=== PATIENT | male | born 1945 | race Caucasian/White ===

== ENCOUNTER 2018-01-18 02:07 | Observation (INO) ==
[2018-01-18] MEDS ORDERED: Isovue-370 500 ML INFUS..BTL IV ONE (02:31)
--- NOTE | 2018-01-18 02:36 | Emergency Department Note ---
Disposition Clinical Impression: Abdominal pain Qualifiers: Abdominal location: generalized Qualified Code(s): R10.84 - Generalized abdominal pain Disposition: Still a Patient Condition: Undetermined Referrals: Rena Chahal MD [Non-Partnered Physician] - Forms: ED Satisfaction Letter, Work/School Release Time of Disposition: 07:00 Abdominal Pain HPI - General Chief Complaint: ED Abdominal Pain Stated Complaint: Abd Pain Time Seen by Provider: 01/18/18 02:18 Source: patient Mode of arrival: ambulatory Limitations: no limitations Nursing Notes Reviewed: Yes Vital Signs Reviewed: Yes - History of Present Illness HPI Narrative: Patient is a 72-year-old male who presents to [facility] ED with chief complaint of abdominal pain. States his symptoms started around midnight tonight. Denies any nausea, vomiting, fever or chills. No problems with bowel movements. No chest pain or difficulty breathing. States it is an 8 out of 10 but was a 9 out of 10 earlier. States it feels like an extreme pressure. Admits to prior history of hernia surgery done by Dr. cShmitt. Past medical history significant for Parkinson's disease. Pt Subjective Complaint: abdominal pain Onset (ago): hour(s) (2) Consistency: constant Location: diffuse Pain Severity: severe Pain Scale: 8 Quality: aching, fullness Radiation: none Migration to: no migration Improves with: nothing Worsens with: nothing Associated symptoms: Denies: nausea, vomiting, diarrhea, fever, chills, constipation, dysuria Treatments prior to arrival: none - Related Data Home Medications Medication Instructions Recorded Confirmed Keppra 05/19/16 Lisinopril [Zestril] 05/19/16 Sertraline [Zoloft] 05/19/16 Simvastatin [Zocor] 05/19/16 Previous Rx's Medication Instructions Recorded cephALEXin [Keflex] 500 mg PO QID #40 capsule 05/19/16 Allergies Allergy/AdvReac Type Severity Reaction Status Date / Time No Known Allergies Allergy Verified 04/20/17 17:56 All systems ED: reviewed and negative except as stated. Abdominal Pain PMH - Past Medical History Medical history: Reports: arthritis, cancer, hyperlipidemia, hypertension, seizures, other Psychiatric history: Reports: no psych history - Social History Smoking status: Never smoker Alcohol use: Reports: none Drug use: Reports: none Physical Exam - General Limitations: no limitations General appearance: alert, in no apparent distress - Head Head exam: atraumatic, normocephalic, normal inspection - Eye Eye exam: Present: normal appearance, EOMI - ENT ENT exam: normal exam, mucous membranes moist - Neck Neck exam: Present: normal inspection, full ROM, trachea midline - Chest Chest inspection: Present: normal inspection, symmetric chest wall rise - Respiratory Respiratory exam: Present: normal lung sounds bilaterally - Cardiovascular Cardiovascular exam: Present: regular rate, normal rhythm, normal heart sounds - Abdominal Exam Abdominal exam: Present: soft, tenderness, normal bowel sounds. Absent: distention, guarding, rebound, rigidity Abdominal tenderness: Present: diffuse, moderate - Extremities Exam Extremities exam: Present: normal inspection, full ROM. Absent: tenderness, pedal edema - Neurological Exam Neurological exam: Present: alert, oriented X3 - Psychiatric Psychiatric exam: Present: normal affect, normal mood - Skin Skin exam: Present: warm, dry, intact, normal color Course Course Narrative: Patient seen and examined. Generalized abdominal pain. No other symptoms. Upon physical exam, patient is tender throughout his entire abdomen. No localization of pain. It is soft. We will get basic lab work, CT abdomen and pelvis. Patient denying any need for pain medication or nausea medication at this time. - Reevaluation(s) Reevaluation #1: Labwork unremarkable. CT scan shows signs of possible acute cholecystitis. We will get a gallbladder ultrasound to further evaluate this. Pt signed out to day team pending US results. Time: 07:00 Vital Signs Temperature 97.7 F 01/18/18 02:31 Pulse Rate 83 01/18/18 02:31 Respiratory Rate 16 01/18/18 02:31 Blood Pressure 156/79 01/18/18 02:31 O2 Sat by Pulse Oximetry 97 01/18/18 02:31 Temperature 97.7 F 01/18/18 02:31 Pulse Rate 83 01/18/18 02:31 Respiratory Rate 16 01/18/18 02:31 Blood Pressure 156/79 01/18/18 02:31 O2 Sat by Pulse Oximetry 97 01/18/18 02:31 Oxygen Delivery Oxygen Delivery Room Air Abdominal Pain - Medical Records Medical records reviewed: Yes I reviewed the patient's medical records. - Lab Data Lab results reviewed: Yes I reviewed the patient's lab results. Result diagrams: 01/18/18 02:31 01/18/18 02:31 Lab Results 01/18/18 01/18/18 01/18/18 Range/Units 02:31 02:31 02:33 WBC 6.5 (4.3-11.1) K/mcL RBC 4.47 (4.19-5.50) M/mcL Hgb 13.4 (12.9-16.9) g/dL Hct 40.1 (37.5-50.1) % MCV 89.7 (83.0-100.0) fL MCH 30.0 (28.0-33.3) pg MCHC 33.4 (31.6-35.5) g/dL RDW 13.2 (11.5-14.5) % Plt Count 121 L (140-400) K/mcL MPV 10.9 (9.4-12.4) fL Immature Gran % 0.2 (0-4) % Seg Neutrophils % 60.8 % Lymphocytes % 29.2 % Monocytes % 8.4 % Eosinophils % 1.1 % Basophils % 0.3 % Neutrophils # 4.0 (1.6-8.9) K/mcL Lymphocytes # 1.9 (0.6-4.6) K/mcL Monocytes # 0.6 (0.0-1.3) K/mcL Eosinophils # 0.1 (0.0-0.6) K/mcL Basophils # 0.0 (0.0-0.2) K/mcL Sodium 138 (136-145) mEq/L Potassium 4.1 (3.5-5.1) mEq/L Chloride 104 (98-107) mEq/L Carbon Dioxide 28 (23-29) mEq/L BUN 18 (8-23) mg/dL Creatinine 0.87 (0.70-1.30) mg/dL Est GFR ( Amer) > 60 (> 60) Est GFR (Non-Af Amer) > 60 (> 60) BUN/Creatinine Ratio 21 (6-26) Glucose 122 H (70-105) mg/dL Calculated Osmolality 289 (280-300) Lactic Acid 1.5 (0.5-2.2) mmol/L Calcium 9.1 (8.6-10.3) mg/dL Total Bilirubin 0.8 (0.3-1.0) mg/dL Direct Bilirubin 0.3 H (0.0-0.2) mg/dL Indirect Bilirubin 0.5 (0.0-1.2) mg/dL AST 49 H (13-39) Units/L ALT 21 (7-52) Units/L Alkaline Phosphatase 35 (34-104) Units/L Serum Total Protein 6.6 (6.4-8.9) g/dL Albumin 4.0 (3.5-5.7) g/dL Globulin 2.6 (2.4-3.5) g/dL Albumin/Globulin Ratio 1.5 (1.1-2.2) Lipase 22 (11-82) Units/L Urine Color (Yellow) Urine Clarity (Clear) Urine pH (5.0-8.0) pH Units Ur Specific [place] (1.010-1.025) Urine Protein (Neg-Trace) mg/dL Urine Glucose (UA) (Normal) mg/dL Urine Ketones (Negative) mg/dL Urine Blood (Negative) Urine Nitrite (Negative) Urine Bilirubin (Negative) Urine Urobilinogen (Normal) mg/dL Ur Leukocyte Esterase (Negative) Urine Microscopic RBC (0-3) per hpf Urine Microscopic WBC (0-3) per hpf Ur Squamous Epith Cells (None-Few) per lpf Urine Bacteria (None-Few) per hpf Hyaline Casts (None-Few) per lpf Ur Culture Indicated? (NO) 01/18/18 Range/Units 02:35 WBC (4.3-11.1) K/mcL RBC (4.19-5.50) M/mcL Hgb (12.9-16.9) g/dL Hct (37.5-50.1) % MCV (83.0-100.0) fL MCH (28.0-33.3) pg MCHC (31.6-35.5) g/dL RDW (11.5-14.5) % Plt Count (140-400) K/mcL MPV (9.4-12.4) fL Immature Gran % (0-4) % Seg Neutrophils % % Lymphocytes % % Monocytes % % Eosinophils % % Basophils % % Neutrophils # (1.6-8.9) K/mcL Lymphocytes # (0.6-4.6) K/mcL Monocytes # (0.0-1.3) K/mcL Eosinophils # (0.0-0.6) K/mcL Basophils # (0.0-0.2) K/mcL Sodium (136-145) mEq/L Potassium (3.5-5.1) mEq/L Chloride (98-107) mEq/L Carbon Dioxide (23-29) mEq/L BUN (8-23) mg/dL Creatinine (0.70-1.30) mg/dL Est GFR ( Amer) (> 60) Est GFR (Non-Af Amer) (> 60) BUN/Creatinine Ratio (6-26) Glucose (70-105) mg/dL Calculated Osmolality (280-300) Lactic Acid (0.5-2.2) mmol/L Calcium (8.6-10.3) mg/dL Total Bilirubin (0.3-1.0) mg/dL Direct Bilirubin (0.0-0.2) mg/dL Indirect Bilirubin (0.0-1.2) mg/dL AST (13-39) Units/L ALT (7-52) Units/L Alkaline Phosphatase (34-104) Units/L Serum Total Protein (6.4-8.9) g/dL Albumin (3.5-5.7) g/dL Globulin (2.4-3.5) g/dL Albumin/Globulin Ratio (1.1-2.2) Lipase (11-82) Units/L Urine Color Yellow (Yellow) Urine Clarity Clear (Clear) Urine pH 6.0 (5.0-8.0) pH Units Ur Specific [place] > 1.030 H (1.010-1.025) Urine Protein Trace (Neg-Trace) mg/dL Urine Glucose (UA) Normal (Normal) mg/dL Urine Ketones Negative (Negative) mg/dL Urine Blood Negative (Negative) Urine Nitrite Negative (Negative) Urine Bilirubin Negative (Negative) Urine Urobilinogen Normal (Normal) mg/dL Ur Leukocyte Esterase Negative (Negative) Urine Microscopic RBC 5-15 H (0-3) per hpf Urine Microscopic WBC 0-3 (0-3) per hpf Ur Squamous Epith Cells Few (None-Few) per lpf Urine Bacteria None Seen (None-Few) per hpf Hyaline Casts None Seen (None-Few) per lpf Ur Culture Indicated? NO (NO) - Radiology Data Radiology results reviewed: Yes I reviewed the patient's radiology results. Abdomen/Pelvis CT 01/18/18 02:31 IMPRESSION: Acute cholecystitis is suspected. D/ / Tad Vasquez MD / aTd Vasquez MD Interpreting Provider: Tad Vasquez MD
[2018-01-18 02:43] LABS: Bilirubin,Urine Negative (Negative); Blood,Urine Negative (Negative); Clarity,Urine Clear (Clear); Color,Urine Yellow (Yellow); Glucose,Urine (UA) Normal (Normal); Ketones,Urine Negative (Negative); Leukocyte Esterase,Urine Negative (Negative); Nitrite,Urine Negative (Negative); Protein,Urine Trace mg/dL (Neg-Trace); Specific Gravity,Urine > 1.030 (1.010-1.025); Urobilinogen,Urine Normal (Normal)
[2018-01-18 02:46] LABS: Bacteria,Urine None Seen per hpf (None-Few); Hyaline Casts,Urine None Seen per lpf (None-Few); Squamous Epithelial Cell,Urine Few per lpf (None-Few); WBC,Urine 0-3 per hpf (0-3)
[2018-01-18 03:03] LABS: Alanine Aminotransferase 21 Units/L (7-52); Albumin/Globulin Ratio 1.5 (1.1-2.2); Alkaline Phosphatase 35 Units/L (34-104); Aspartate Amino Transferase 49 Units/L (13-39); BUN/Creatinine Ratio 21 (6-26); Bilirubin,Direct 0.3 mg/dL (0.0-0.2); Bilirubin,Indirect 0.5 mg/dL (0.0-1.2); Bilirubin,Total 0.8 mg/dL (0.3-1.0); Blood Urea Nitrogen 18 mg/dL (8-23); Calcium 9.1 mg/dL (8.6-10.3); Carbon Dioxide 28 mEq/L (23-29); Chloride 104 mEq/L (98-107); Globulin 2.6 g/dL (2.4-3.5); Glucose 122 mg/dL (70-105); Lipase 22 Units/L (11-82); Osmolality,Calculated 289 (280-300); Potassium 4.1 mEq/L (3.5-5.1); Sodium 138 mEq/L (136-145); Total Protein 6.6 g/dL (6.4-8.9); eGFR For African Americans > 60 (> 60); eGFR For Non-African Americans > 60 (> 60)
[2018-01-18 03:17] LABS: Basophils % 0.3 %; Eosinophils # 0.1 K/mcL (0.0-0.6); Eosinophils % 1.1 %; Hematocrit 40.1 % (37.5-50.1); Hemoglobin 13.4 g/dL (12.9-16.9); Immature Granulocytes % 0.2 % (0-4); Lymphocytes # 1.9 K/mcL (0.6-4.6); Lymphocytes % 29.2 %; Mean Corpuscular HGB Conc 33.4 g/dL (31.6-35.5); Mean Corpuscular Volume 89.7 fL (83.0-100.0); Mean Platelet Volume 10.9 fL (9.4-12.4); Monocytes # 0.6 K/mcL (0.0-1.3); Monocytes % 8.4 %; Platelet Count 121 K/mcL (140-400); Red Blood Count 4.47 M/mcL (4.19-5.50); Red Cell Distribution Width 13.2 % (11.5-14.5); Segmented Neutrophils % 60.8 %
--- NOTE | 2018-01-18 07:14 | Emergency Department Note ---
Disposition Clinical Impression: Abdominal pain Qualifiers: Abdominal location: generalized Qualified Code(s): R10.84 - Generalized abdominal pain Disposition: Still a Patient Condition: Undetermined Referrals: Rena Chahal MD [Non-Partnered Physician] - Forms: ED Satisfaction Letter, Work/School Release General Adult HPI - General Chief complaint: ED Abdominal Pain Stated complaint: Abd Pain Time Seen by Provider: 01/18/18 02:18 Source: patient Mode of arrival: ambulatory Limitations: no limitations Nursing Notes Reviewed: Yes Vital Signs Reviewed: Yes - History of Present Illness Pain Scale: 8 - Related Data Home Medications Medication Instructions Recorded Confirmed Keppra 05/19/16 Lisinopril [Zestril] 05/19/16 Sertraline [Zoloft] 05/19/16 Simvastatin [Zocor] 05/19/16 Previous Rx's Medication Instructions Recorded cephALEXin [Keflex] 500 mg PO QID #40 capsule 05/19/16 Allergies Allergy/AdvReac Type Severity Reaction Status Date / Time No Known Allergies Allergy Verified 04/20/17 17:56 Past Medical History - Past Medical History Medical history: Reports: arthritis, cancer, hyperlipidemia, hypertension, seizures, other Surgical history: Reports: other Psychiatric history: Reports: no psych history - Social History Smoking Status: Never smoker Smokeless Tobacco Status: No Alcohol use: Reports: none Drug use: Reports: none Physical Exam - General Limitations: no limitations General appearance: alert, in no apparent distress Course Vital Signs Temperature 97.7 F 01/18/18 02:31 Pulse Rate 83 01/18/18 02:31 Respiratory Rate 16 01/18/18 02:31 Blood Pressure 156/79 01/18/18 02:31 O2 Sat by Pulse Oximetry 97 01/18/18 02:31 Temperature 97.7 F 01/18/18 02:31 Pulse Rate 83 01/18/18 02:31 Respiratory Rate 16 01/18/18 02:31 Blood Pressure 156/79 01/18/18 02:31 O2 Sat by Pulse Oximetry 97 01/18/18 02:31 Oxygen Delivery Oxygen Delivery Room Air Medical Decision Making - Lab Data Result diagrams: 01/18/18 02:31 01/18/18 02:31 Lab Results 01/18/18 01/18/18 01/18/18 Range/Units 02:31 02:31 02:33 WBC 6.5 (4.3-11.1) K/mcL RBC 4.47 (4.19-5.50) M/mcL Hgb 13.4 (12.9-16.9) g/dL Hct 40.1 (37.5-50.1) % MCV 89.7 (83.0-100.0) fL MCH 30.0 (28.0-33.3) pg MCHC 33.4 (31.6-35.5) g/dL RDW 13.2 (11.5-14.5) % Plt Count 121 L (140-400) K/mcL MPV 10.9 (9.4-12.4) fL Immature Gran % 0.2 (0-4) % Seg Neutrophils % 60.8 % Lymphocytes % 29.2 % Monocytes % 8.4 % Eosinophils % 1.1 % Basophils % 0.3 % Neutrophils # 4.0 (1.6-8.9) K/mcL Lymphocytes # 1.9 (0.6-4.6) K/mcL Monocytes # 0.6 (0.0-1.3) K/mcL Eosinophils # 0.1 (0.0-0.6) K/mcL Basophils # 0.0 (0.0-0.2) K/mcL Sodium 138 (136-145) mEq/L Potassium 4.1 (3.5-5.1) mEq/L Chloride 104 (98-107) mEq/L Carbon Dioxide 28 (23-29) mEq/L BUN 18 (8-23) mg/dL Creatinine 0.87 (0.70-1.30) mg/dL Est GFR ( Amer) > 60 (> 60) Est GFR (Non-Af Amer) > 60 (> 60) BUN/Creatinine Ratio 21 (6-26) Glucose 122 H (70-105) mg/dL Calculated Osmolality 289 (280-300) Lactic Acid 1.5 (0.5-2.2) mmol/L Calcium 9.1 (8.6-10.3) mg/dL Total Bilirubin 0.8 (0.3-1.0) mg/dL Direct Bilirubin 0.3 H (0.0-0.2) mg/dL Indirect Bilirubin 0.5 (0.0-1.2) mg/dL AST 49 H (13-39) Units/L ALT 21 (7-52) Units/L Alkaline Phosphatase 35 (34-104) Units/L Serum Total Protein 6.6 (6.4-8.9) g/dL Albumin 4.0 (3.5-5.7) g/dL Globulin 2.6 (2.4-3.5) g/dL Albumin/Globulin Ratio 1.5 (1.1-2.2) Lipase 22 (11-82) Units/L Urine Color (Yellow) Urine Clarity (Clear) Urine pH (5.0-8.0) pH Units Ur Specific [place] (1.010-1.025) Urine Protein (Neg-Trace) mg/dL Urine Glucose (UA) (Normal) mg/dL Urine Ketones (Negative) mg/dL Urine Blood (Negative) Urine Nitrite (Negative) Urine Bilirubin (Negative) Urine Urobilinogen (Normal) mg/dL Ur Leukocyte Esterase (Negative) Urine Microscopic RBC (0-3) per hpf Urine Microscopic WBC (0-3) per hpf Ur Squamous Epith Cells (None-Few) per lpf Urine Bacteria (None-Few) per hpf Hyaline Casts (None-Few) per lpf Ur Culture Indicated? (NO) 01/18/18 Range/Units 02:35 WBC (4.3-11.1) K/mcL RBC (4.19-5.50) M/mcL Hgb (12.9-16.9) g/dL Hct (37.5-50.1) % MCV (83.0-100.0) fL MCH (28.0-33.3) pg MCHC (31.6-35.5) g/dL RDW (11.5-14.5) % Plt Count (140-400) K/mcL MPV (9.4-12.4) fL Immature Gran % (0-4) % Seg Neutrophils % % Lymphocytes % % Monocytes % % Eosinophils % % Basophils % % Neutrophils # (1.6-8.9) K/mcL Lymphocytes # (0.6-4.6) K/mcL Monocytes # (0.0-1.3) K/mcL Eosinophils # (0.0-0.6) K/mcL Basophils # (0.0-0.2) K/mcL Sodium (136-145) mEq/L Potassium (3.5-5.1) mEq/L Chloride (98-107) mEq/L Carbon Dioxide (23-29) mEq/L BUN (8-23) mg/dL Creatinine (0.70-1.30) mg/dL Est GFR ( Amer) (> 60) Est GFR (Non-Af Amer) (> 60) BUN/Creatinine Ratio (6-26) Glucose (70-105) mg/dL Calculated Osmolality (280-300) Lactic Acid (0.5-2.2) mmol/L Calcium (8.6-10.3) mg/dL Total Bilirubin (0.3-1.0) mg/dL Direct Bilirubin (0.0-0.2) mg/dL Indirect Bilirubin (0.0-1.2) mg/dL AST (13-39) Units/L ALT (7-52) Units/L Alkaline Phosphatase (34-104) Units/L Serum Total Protein (6.4-8.9) g/dL Albumin (3.5-5.7) g/dL Globulin (2.4-3.5) g/dL Albumin/Globulin Ratio (1.1-2.2) Lipase (11-82) Units/L Urine Color Yellow (Yellow) Urine Clarity Clear (Clear) Urine pH 6.0 (5.0-8.0) pH Units Ur Specific [place] > 1.030 H (1.010-1.025) Urine Protein Trace (Neg-Trace) mg/dL Urine Glucose (UA) Normal (Normal) mg/dL Urine Ketones Negative (Negative) mg/dL Urine Blood Negative (Negative) Urine Nitrite Negative (Negative) Urine Bilirubin Negative (Negative) Urine Urobilinogen Normal (Normal) mg/dL Ur Leukocyte Esterase Negative (Negative) Urine Microscopic RBC 5-15 H (0-3) per hpf Urine Microscopic WBC 0-3 (0-3) per hpf Ur Squamous Epith Cells Few (None-Few) per lpf Urine Bacteria None Seen (None-Few) per hpf Hyaline Casts None Seen (None-Few) per lpf Ur Culture Indicated? NO (NO) Attestation Statement - Attestation Attestation: I, Everardo Jacobo MD, personally evaluated this patient and discussed their management with the resident physician. I reviewed the resident's note and agree with the documented findings, medical decision making, and plan of care. 72-year-old male presents to the emergency department with a complaint of generalized abdominal pain which started about midnight tonight. He states the pain was initially in the upper abdomen and then moved down into the mid abdomen. He did have some nausea but no vomiting. No diarrhea. No melena, hematemesis, or hematochezia. No fever. No urinary symptoms. Patient's only prior abdominal surgery is inguinal hernia repair. On examination patient is a well-developed well-nourished well-appearing elderly male in no acute distress. He is alert and oriented 3. There is no cyanosis or diaphoresis. Breath sounds are clear and equal bilaterally. Heart regular rate and rhythm. Abdomen is soft with normal bowel sounds. There is mild diffuse tenderness with moderate right upper quadrant tenderness on direct palpation. Mild right upper quadrant guarding. No rebound tenderness. No CVA tenderness. Labs reviewed and unremarkable. CT scan of the abdomen and pelvis obtained and was suspicious for acute cholecystitis with some pericholecystic fluid noted. A gallbladder ultrasound was ordered. At shift change the patient is signed out to the oncoming dayshift team, Dr. Mejia and Dr. Webb.
--- NOTE | 2018-01-18 08:13 | Emergency Department Note ---
Disposition Clinical Impression: Abdominal pain Qualifiers: Abdominal location: generalized Qualified Code(s): R10.84 - Generalized abdominal pain Disposition: Still a Patient Condition: Undetermined Referrals: Rena Chahal MD [Non-Partnered Physician] - Forms: ED Satisfaction Letter, Work/School Release Time of Disposition: 10:07 General Adult HPI - General Chief complaint: ED Abdominal Pain Stated complaint: Abd Pain Time Seen by Provider: 01/18/18 02:18 Source: patient Mode of arrival: ambulatory Limitations: no limitations Nursing Notes Reviewed: Yes Vital Signs Reviewed: Yes - History of Present Illness Pain Scale: 7 - Related Data Home Medications Medication Instructions Recorded Confirmed Keppra 05/19/16 Lisinopril [Zestril] 05/19/16 Sertraline [Zoloft] 05/19/16 Simvastatin [Zocor] 05/19/16 Carbidopa/Levodopa [Carbidopa-Levo 1 each PO TID 01/18/18 01/18/18 25-100 mg Odt] LevETIRAcetam [Roweepra] 500 mg PO BID 01/18/18 01/18/18 rOPINIRole [Requip] 1 mg PO TID 01/18/18 01/18/18 Allergies Allergy/AdvReac Type Severity Reaction Status Date / Time No Known Allergies Allergy Verified 04/20/17 17:56 Past Medical History - Past Medical History Medical history: Reports: arthritis, cancer, hyperlipidemia, hypertension, seizures, other Surgical history: Reports: other Psychiatric history: Reports: no psych history - Social History Smoking Status: Never smoker Smokeless Tobacco Status: No Alcohol use: Reports: none Drug use: Reports: none Physical Exam - General Limitations: no limitations General appearance: alert, in no apparent distress Course Course Narrative: Patient was initially seen by the night team Dr. Mitchell and Dr. Jacobo please see their note for further. His abdominal ultrasound it come back with a concern for acute cholecystitis. I reexamined him and he is still having right upper quadrant abdominal pain. He states it is decreased since he was first evaluated here. He is well- appearing and conversant. He frequently laughs and tells jokes. I discussed the case with Dr. tolentino who is agreeable to admission to the hospital for possible cholecystectomy this evening. She is agreeable for this plan. He states that the last time he ate was [facility] on 10:30. He did take sips of water to take his medication. - Consultations Consultation #1: Dr Tolentino will be in to see the Pt. He is admitting to his service. Time: 08:11 Vital Signs Temperature 97.7 F 01/18/18 02:31 Pulse Rate 83 01/18/18 02:31 Respiratory Rate 16 01/18/18 02:31 Blood Pressure 156/79 01/18/18 02:31 O2 Sat by Pulse Oximetry 97 01/18/18 02:31 Temperature 97.7 F 01/18/18 02:31 Pulse Rate 65 01/18/18 07:20 Respiratory Rate 18 01/18/18 07:20 Blood Pressure 128/75 01/18/18 07:20 O2 Sat by Pulse Oximetry 99 01/18/18 07:20 Oxygen Delivery Oxygen Delivery Room Air Medical Decision Making - Lab Data Result diagrams: 01/18/18 02:31 01/18/18 02:31 Lab Results 01/18/18 01/18/18 01/18/18 Range/Units 02:31 02:31 02:33 WBC 6.5 (4.3-11.1) K/mcL RBC 4.47 (4.19-5.50) M/mcL Hgb 13.4 (12.9-16.9) g/dL Hct 40.1 (37.5-50.1) % MCV 89.7 (83.0-100.0) fL MCH 30.0 (28.0-33.3) pg MCHC 33.4 (31.6-35.5) g/dL RDW 13.2 (11.5-14.5) % Plt Count 121 L (140-400) K/mcL MPV 10.9 (9.4-12.4) fL Immature Gran % 0.2 (0-4) % Seg Neutrophils % 60.8 % Lymphocytes % 29.2 % Monocytes % 8.4 % Eosinophils % 1.1 % Basophils % 0.3 % Neutrophils # 4.0 (1.6-8.9) K/mcL Lymphocytes # 1.9 (0.6-4.6) K/mcL Monocytes # 0.6 (0.0-1.3) K/mcL Eosinophils # 0.1 (0.0-0.6) K/mcL Basophils # 0.0 (0.0-0.2) K/mcL Sodium 138 (136-145) mEq/L Potassium 4.1 (3.5-5.1) mEq/L Chloride 104 (98-107) mEq/L Carbon Dioxide 28 (23-29) mEq/L BUN 18 (8-23) mg/dL Creatinine 0.87 (0.70-1.30) mg/dL Est GFR ( Amer) > 60 (> 60) Est GFR (Non-Af Amer) > 60 (> 60) BUN/Creatinine Ratio 21 (6-26) Glucose 122 H (70-105) mg/dL Calculated Osmolality 289 (280-300) Lactic Acid 1.5 (0.5-2.2) mmol/L Calcium 9.1 (8.6-10.3) mg/dL Total Bilirubin 0.8 (0.3-1.0) mg/dL Direct Bilirubin 0.3 H (0.0-0.2) mg/dL Indirect Bilirubin 0.5 (0.0-1.2) mg/dL AST 49 H (13-39) Units/L ALT 21 (7-52) Units/L Alkaline Phosphatase 35 (34-104) Units/L Serum Total Protein 6.6 (6.4-8.9) g/dL Albumin 4.0 (3.5-5.7) g/dL Globulin 2.6 (2.4-3.5) g/dL Albumin/Globulin Ratio 1.5 (1.1-2.2) Lipase 22 (11-82) Units/L Urine Color (Yellow) Urine Clarity (Clear) Urine pH (5.0-8.0) pH Units Ur Specific [place] (1.010-1.025) Urine Protein (Neg-Trace) mg/dL Urine Glucose (UA) (Normal) mg/dL Urine Ketones (Negative) mg/dL Urine Blood (Negative) Urine Nitrite (Negative) Urine Bilirubin (Negative) Urine Urobilinogen (Normal) mg/dL Ur Leukocyte Esterase (Negative) Urine Microscopic RBC (0-3) per hpf Urine Microscopic WBC (0-3) per hpf Ur Squamous Epith Cells (None-Few) per lpf Urine Bacteria (None-Few) per hpf Hyaline Casts (None-Few) per lpf Ur Culture Indicated? (NO) 06/23/18 Range/Units 02:35 WBC (4.3-11.1) K/mcL RBC (4.19-5.50) M/mcL Hgb (12.9-16.9) g/dL Hct (37.5-50.1) % MCV (83.0-100.0) fL MCH (28.0-33.3) pg MCHC (31.6-35.5) g/dL RDW (11.5-14.5) % Plt Count (140-400) K/mcL MPV (9.4-12.4) fL Immature Gran % (0-4) % Seg Neutrophils % % Lymphocytes % % Monocytes % % Eosinophils % % Basophils % % Neutrophils # (1.6-8.9) K/mcL Lymphocytes # (0.6-4.6) K/mcL Monocytes # (0.0-1.3) K/mcL Eosinophils # (0.0-0.6) K/mcL Basophils # (0.0-0.2) K/mcL Sodium (136-145) mEq/L Potassium (3.5-5.1) mEq/L Chloride (98-107) mEq/L Carbon Dioxide (23-29) mEq/L BUN (8-23) mg/dL Creatinine (0.70-1.30) mg/dL Est GFR ( Amer) (> 60) Est GFR (Non-Af Amer) (> 60) BUN/Creatinine Ratio (6-26) Glucose (70-105) mg/dL Calculated Osmolality (280-300) Lactic Acid (0.5-2.2) mmol/L Calcium (8.6-10.3) mg/dL Total Bilirubin (0.3-1.0) mg/dL Direct Bilirubin (0.0-0.2) mg/dL Indirect Bilirubin (0.0-1.2) mg/dL AST (13-39) Units/L ALT (7-52) Units/L Alkaline Phosphatase (34-104) Units/L Serum Total Protein (6.4-8.9) g/dL Albumin (3.5-5.7) g/dL Globulin (2.4-3.5) g/dL Albumin/Globulin Ratio (1.1-2.2) Lipase (11-82) Units/L Urine Color Yellow (Yellow) Urine Clarity Clear (Clear) Urine pH 6.0 (5.0-8.0) pH Units Ur Specific [place] > 1.030 H (1.010-1.025) Urine Protein Trace (Neg-Trace) mg/dL Urine Glucose (UA) Normal (Normal) mg/dL Urine Ketones Negative (Negative) mg/dL Urine Blood Negative (Negative) Urine Nitrite Negative (Negative) Urine Bilirubin Negative (Negative) Urine Urobilinogen Normal (Normal) mg/dL Ur Leukocyte Esterase Negative (Negative) Urine Microscopic RBC 5-15 H (0-3) per hpf Urine Microscopic WBC 0-3 (0-3) per hpf Ur Squamous Epith Cells Few (None-Few) per lpf Urine Bacteria None Seen (None-Few) per hpf Hyaline Casts None Seen (None-Few) per lpf Ur Culture Indicated? NO (NO)
[2018-01-18] MEDS ORDERED: *HR* OxyCODONE Immed Rel 5 MG TABLET PO PRN ×2 (09:13→19:13)
[2018-01-18] MEDS ORDERED: Acetaminophen 325 MG TABLET PO PRN (09:13)
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
[2018-01-18] MEDS ORDERED: Divalproex (12 HR) 500 MG TABLET PO SCH (09:30)
[2018-01-18] MEDS ORDERED: levETIRAcetam 250 MG TABLET PO SCH (09:30)
[2018-01-18] MEDS: Ringers Solution, Lactated 1,000 ML IVC SCH ×2 (10:42→18:00)
[2018-01-18] MEDS: rOPINIRole 1 MG TABLET PO SCH ×3 (10:42→21:42)
[2018-01-18] MEDS: Carbidopa/Levodopa 25/100 TABLET PO SCH ×3 (10:43→21:41)
[2018-01-18] MEDS ORDERED: Ondansetron 4 MG/2 ML VIAL IVP PRN ×2 (12:00→19:13)
[2018-01-18] MEDS ORDERED: *HR* Propofol 200 MG/20 ML VIAL IVP ONE (16:29)
[2018-01-18] MEDS ORDERED: Ondansetron 4 MG/2 ML VIAL ONE (16:29)
[2018-01-18] MEDS ORDERED: Lidocaine -MPF 2% 2 ML VIAL ONE (16:29)
[2018-01-18] MEDS ORDERED: Dexamethasone 4 MG/ML VIAL ONE (16:29)
[2018-01-18] MEDS ORDERED: *HR* FentaNYL (PF) 100 MCG/2 ML VIAL ONE ×2 (16:29→17:28)
--- NOTE | 2018-01-18 16:37 | Anesthesia Evaluation PreOp ---
Date of Encounter: 01/18/18 Time of Encounter: 16:35 - Past History Planned Operation: Cholecystectomy Cardiac History: HTN, Hyperlipidemia Pulmonary History: Denies Any Significant HX [employer] History: Other (Parkinson's) Other Medical History: Other (BPH) Anesthesia History: No Prior Anesthetic Complications Alcohol Use: none Drug use: none Medications and Allergies Divalproex (12 HR) [Depakote (12 HR)] 500 mg PO BID 05/19/16 [History] Sertraline [Zoloft] 150 mg PO DAILY 05/19/16 [History] Simvastatin [Zocor] 40 mg PO HS 05/19/16 [History] Carbidopa/Levodopa [Carbidopa-Levo 25-100 mg Odt] 1 each PO TID 01/18/18 [ History] LevETIRAcetam [Roweepra] 500 mg PO BID 01/18/18 [History] Lisinopril [Zestril] 10 mg PO DAILY 01/18/18 [History] rOPINIRole [Requip] 1 mg PO TID 01/18/18 [History] 3 Allergy/AdvReac Type Severity Reaction Status Date / Time No Known Allergies Allergy Verified 01/18/18 11:03 - Meds/Allergy Pre-op Review Medications Reviewed: Yes Allergies Reviewed: Yes Beta Blockers on Current Med List: No Anesthesia Results - Labs 01/18/18 02:31 01/18/18 02:31 Laboratory Tests 03/25/14 05/05/14 01/18/18 05:10 13:50 02:31 Hgb 13.4 Hct 40.1 Plt Count 121 L PT 10.5 INR 1.0 PTT 26.5 Sodium Potassium BUN Creatinine 01/18/18 02:31 Hgb Hct Plt Count PT INR PTT Sodium 138 Potassium 4.1 BUN 18 Creatinine 0.87 Anesthesia Exam Vital Signs/O2 Sat/Glucose, Most Current Temp Pulse Resp BP Pulse Ox 01/18/18 15:03 97.8 F 85 16 122/70 99 Height: 5'8 Weight: 225 lbs NPO (# of Hours): MN Pain Scale: 0 - HEENT Pupil (Motor): Pupils equal, EOMI Mallampati: III Teeth: Edentulous (no upper dentition) Oral Opening: Less than or equal to 3 - [employer] LOC: Oriented [employer] Motor: Normal RUE, Normal LUE, Normal RLE, Normal LLE, Normal Face [employer] Sensory: Normal: RUE, LUE, RLE, LLE, Face - Cardiac Rhythm: Regular Murmur: None JVD: No Carotid Bruit: No - Pulmonary Breath Sounds: bilateral Clear Respiratory Effort: Symmetrical Anesthesia Assess/Plan ASA Score: 3 (HTN Parkinson's) Modified [place] Scale for Level of Consciousness: Cooperative, oriented, and tranquil Anesthetic Plan: General Monitoring Plan: Standard Monitors Recovery Plan: PACU (Discussed GA, agrees to proceed, possible TAP Block post op for rescue)
[2018-01-18] MEDS ORDERED: Acetaminophen IV 1,000 MG/100 ML INFUS..BTL ONE (16:40)
[2018-01-18] MEDS ORDERED: Famotidine 20 MG/2 ML VIAL ONE (16:40)
[2018-01-18] MEDS ORDERED: Isovue-300 50 ML VIAL IVP ONE (16:56)
[2018-01-18] MEDS ORDERED: Bupivacaine/EPI 1:200k 0.25%PF 30 ML VIAL ONE (16:56)
[2018-01-18] MEDS ORDERED: Ketorolac 30 MG/ML VIAL ONE (18:04)
[2018-01-18] MEDS ORDERED: Neostigmine Methylsulfate 3 MG/3 ML SYRINGE ONE (18:05)
--- NOTE | 2018-01-18 18:46 | Operative Note ---
Date of procedure: 01/18/18 Pre-op diagnosis: acute cholecystitis, cholelithiasis Post-op diagnosis: same Procedure: Laparoscopic cholecystectomy, intraoperative quadrant Complications: None apparent Anesthesia: GETA Local Anesthetics: 0.25% Sensorcaine HCL with Epinephrine 1:200,000 SubQ (cc) ( 20 mL) Surgeon: Silviano Tolentino Was there an hotel administrative assistant present: No Manager Collection: Galen Tsang Estimated blood loss (cc): 5 IV fluids (cc): 1,000 Specimen: gallbladder Condition: stable Disposition: PACU Procedure in Detail: The patient was brought to the operating room where he was placed supine on the procedure table. The patient was appropriately identified as to person and procedure. The accuracy of this information was confirmed by the patient and procedure team. The patient was then intubated and anesthetized under the supervision of Dr. Chacho Schaeffer. The abdomen was prepped and draped in the usual sterile fashion. Because of previous transabdominal surgery (probable peritoneal lavage), the initial laparoscopic approach was in the right upper quadrant, midclavicular line, caudal to the costal margin. Several milliliters of 0.25% bupivacaine with 1-200,000 units epinephrine was infiltrated into this site. A small transverse incision was made. A 5 mm Xcel was established. The rigid laparoscope was placed within the obturator to visualize passage through the layers of the anterior abdominal wall. When the abdominal cavity was accessed, the obturator was replaced by the rigid laparoscope, the abdomen was insufflated with gaseous carbon dioxide. There was no obvious visible injury from establishing the port. There were no significant adhesions in the area of the umbilicus. Under direct visualization an 11 mm port was established. The rigid laparoscope was shifted to this location to visualize placement of the remaining ports. The gallbladder was grasped and retracted. The hepatoduodenal ligament was dissected, the cystic duct skeletonized and clipped near the infundibulum of the gallbladder. The cystic artery was also identified , skeletonized, clipped twice proximally, and clipped once distally. Via a separate percutaneous insertion site, a Taut cholangiogram catheter was introduced. The cystic duct was incised, the cholangiogram catheter introduced. Using C-arm fluoroscopy, cholangiogram was then completed showing a normal-appearing hepatobiliary tree. There were no filling defects. There was free flow of contrast into the duodenum. The cholangiocatheter was removed , the cystic duct was doubly clipped and divided. The cystic artery was now divided as well. The gallbladder was dissected from the liver bed using Ethicon harmonic deondre. Once from the liver bed, the gallbladder was placed in an endoscopic pouch and extracted through the infraumbilical opening. The gallbladder was retrieved and sent to pathology for analysis. Multiple stones of varying size were readily identified within the gallbladder. The liver bed was inspected for adequate hemostasis. Once this was assured, the pneumoperitoneum was evacuated, the laparoscopic instrumentation removed. The fascia of the infraumbilical opening was closed with interrupted figure-of- eight's 0 Vicryl using S retractors. The skin edges of the port sites were approximated with subcuticular 4-0 Vicryl. The incisions were sealed with Dermabond dermal adhesive. The patient was taken to recovery in stable condition. Needle, sponge, and instrument counts were correct at the close of the case. Total volume of 0.25% bupivacaine with 1-200,000 units epinephrine used, 20 mL.
--- NOTE | 2018-01-18 18:57 | Anesthesia Evaluation Post Op ---
Date of Encounter: 01/18/18 Time of Encounter: 19:00 - Vital Signs Vital Signs: Vital Signs/O2 Sat/Glucose, Most Current Temp Pulse Resp BP Pulse Ox 01/18/18 18:45 60 14 116/60 99 01/18/18 18:35 97.2 F L 57 12 117/68 99 01/18/18 15:03 97.8 F 85 16 122/70 99 - Lungs Lungs: Clear Ascult./Percussion - Airway Airway: Non-obstructed - Cardiovascular Regular Rate - Mental Status Mental Status: Alert & Oriented, Answers Appropriately - Pain Pain Scale: 1 - Nausea Vomiting Nausea Vomiting: Not Present - Hydration Hydration: Ice chips - Discharge PostOp Status: Transfer Patient to floor
[2018-01-18] MEDS ORDERED: Ringers Solution, Lactated 1,000 ML IVC SCH (19:13)
[2018-01-18] MEDS ORDERED: *HR* OxyCODONE/APAP 5/325 TABLET PO PRN (19:13)
[2018-01-18] MEDS ORDERED: Ringers Solution, Lactated 500 ML IVC ONE (19:18)
[2018-01-18] MEDS: Acetaminophen 325 MG TABLET PO PRN (21:40)
[2018-01-18] MEDS: levETIRAcetam 250 MG TABLET PO SCH (21:42)
[2018-01-18] MEDS: Divalproex (12 HR) 500 MG TABLET PO SCH (21:43)
[2018-01-19 01:23] LABS: Basophils % 0.1 %; Hematocrit 39.5 % (37.5-50.1); Hemoglobin 13.3 g/dL (12.9-16.9); Immature Granulocytes % 0.4 % (0-4); Lymphocytes # 1.1 K/mcL (0.6-4.6); Mean Corpuscular HGB Conc 33.7 g/dL (31.6-35.5); Mean Corpuscular Volume 89.2 fL (83.0-100.0); Mean Platelet Volume 11.2 fL (9.4-12.4); Monocytes # 0.3 K/mcL (0.0-1.3); Monocytes % 4.3 %; Neutrophils # 5.5 K/mcL (1.6-8.9); Platelet Count 111 K/mcL (140-400); Red Blood Count 4.43 M/mcL (4.19-5.50); Red Cell Distribution Width 13.2 % (11.5-14.5); Segmented Neutrophils % 79.2 %
[2018-01-19 07:10] VITALS: BP 142/77
[2018-01-19] MEDS: rOPINIRole 1 MG TABLET PO SCH (09:10)
[2018-01-19] MEDS: Divalproex (12 HR) 500 MG TABLET PO SCH (09:10)
[2018-01-19] MEDS: Carbidopa/Levodopa 25/100 TABLET PO SCH (09:11)
[2018-01-19] MEDS: levETIRAcetam 250 MG TABLET PO SCH (09:11)
[2018-01-19] MEDS: Acetaminophen 325 MG TABLET PO PRN (09:18)
--- NOTE | 2018-01-19 10:48 | General Surgery Progress Note ---
Date of Encounter: 01/19/18 Time of Encounter: 10:45 - Assessment and Plan (1) Cholelithiasis Current Visit: Yes Status: Acute Qualifiers: Cholelithiasis location: gallbladder Cholecystitis presence: with cholecystitis Cholecystitis acuity: acute Biliary obstruction: without biliary obstruction Qualified Code(s): K80.00 - Calculus of gallbladder with acute cholecystitis without obstruction Subjective Narrative: General Surgery - POD#1 Patient feeling well, minimal complaints. Afebrile, hemodynamically stable. 97.4, 64, 18, blood pressure 142/77. Lungs: Clear to auscultation, no abdominal pain with deep inspiration Abdomen: Soft, minimal infraumbilical tenderness related to that port site. Port sites clean and dry. Patient tolerating regular diet, active bowel sounds Laboratories: White count 6.9, hemoglobin 13.3, hematocrit 39.5 Impression: Acute cholecystitis, cholelithiasis with biliary colic - Postoperative day 1, status post laparoscopic cholecystectomy, intraoperative cholangiogram Acceptable postoperative status Plan: Discharge home Outpatient follow-up in the office, 01/24/18. Objective Vital Signs - Last 8 Hours Temp Pulse Resp BP Pulse Ox 01/19/18 07:07 97.4 F L 64 18 142/77 98 01/19/18 05:31 97.6 F 72 15 119/69 93 Intake and Output 01/18/18 01/19/18 01/19/18 23:59 07:59 15:59 Intake Total 1000 / 1000 200 / 200 360 / 360 Output Total 555 / 555 0 / 0 Balance 445 / 445 200 / 200 360 / 360 Intake: IV Fluids 1000 / 1000 Lactated Ringers 1,000 ML @ 100 1000 / 1000 mls/hr IVC .Q10H TOMER Rx#: [id number] Oral 0 / 0 200 / 200 360 / 360 Output: Urine 550 / 550 0 / 0 Estimated Blood Loss 5 / 5 Other: Meal NPO Breakfast Percent of Meal Consumed 0% 100% # Bowel Movements 0 0 Weight 101.6 kg - Labs 01/19/18 01:02 01/18/18 02:31 Consult Discharge Plan - Plan Referrals: Umang Naik MD [Primary Care Provider] -
--- NOTE | 2018-01-19 10:53 | Discharge Summary ---
Outpatient Proc Discharge Plan - Plan Additional Instructions: Regular diet Activity as tolerated; lifting limited less than 20 pounds Patient may shower, wash incision with soap and water Patient to continue his routine home meds Tylenol, ibuprofen, Motrin, Advil, Aleve, etc. as needed for pain Prescription for Percocet 5/325, #12, one every 6 hours as needed for pain not relieved by [id number] medications Outpatient follow-up, 01/24/18; patient call office in a.m. to make this appointment. Prescriptions: OxyCODONE/APAP 5/325 [Percocet 5/325 MG] 1 each PO Q6H PRN 3 Days #12 tablet PRN Reason: Pain Home Medications: Divalproex (12 HR) [Depakote (12 HR)] 500 mg PO BID 05/19/16 [History] Sertraline [Zoloft] 150 mg PO DAILY 05/19/16 [History] Simvastatin [Zocor] 40 mg PO HS 05/19/16 [History] Carbidopa/Levodopa [Carbidopa-Levo 25-100 mg Odt] 1 each PO TID 01/18/18 [ History] LevETIRAcetam [Roweepra] 500 mg PO BID 01/18/18 [History] Lisinopril [Zestril] 10 mg PO DAILY 01/18/18 [History] rOPINIRole [Requip] 1 mg PO TID 01/18/18 [History] Acetaminophen [Tylenol] 650 mg PO Q6HR PRN tablet 01/19/18 [Rx] OxyCODONE/APAP 5/325 [Percocet 5/325 MG] 1 each PO Q6H PRN 3 Days #12 tablet [Rx]
== END 2018-01-19 13:39 | disposition home or self-care (01) ==
LOC: 3ANU 02:07 → EMEROO 02:07 → 3ANU 09:26
PROVIDERS: ADMIT Surgery; ATTEND Surgery